=== PATIENT | female | born 1985 ===

== ENCOUNTER 2019-03-07 11:25 | Emergency (ER) | payer BC, OTHER ==
--- NOTE | 2019-03-07 11:38 | Event Note ---
ED Screening Note Date of service: 03/07/19 Time: 11:35 ED Screening Note: 33 y o female presents to ED cc of upper back right sided pain states pain worsened with inhalation, states was working out 3 weeks ago This initial assessment/diagnostic orders/clinical plan/treatment(s) is/are subject to change based on patients health status, clinical progression and re- assessment by fellow clinical providers in the ED. Further treatment and workup at subsequent clinical providers discretion. Patient/guardian urged not to elope from the ED as their condition may be serious if not clinically assessed and managed. Initial orders include: cxr
--- NOTE | 2019-03-07 12:43 | XRay Report ---
CHEST 1 View INDICATION / CLINICAL INFORMATION: Chest pain for one day. COMPARISON: None available. FINDINGS: No lateral view of the chest was obtained. SUPPORT DEVICES: None. HEART / MEDIASTINUM: No significant abnormality. LUNGS / PLEURA: No significant pulmonary or pleural abnormality. No pneumothorax. ADDITIONAL FINDINGS: No significant additional findings. IMPRESSION: No acute abnormality of the chest. Signer Name: Luke Mullen MD Signed: 03/07/2019 12:38 PM Workstation Name: [id number]
[2019-03-07 12:56] LABS: Basophils % (Auto) 0.5 % (0.0-1.8); Eosinophils # (Auto) 0.1 K/mm3 (0.0-0.4); Eosinophils % (Auto) 2.2 % (0.0-4.3); Hematocrit 39.9 % (30.3-42.9); Hemoglobin 12.7 gm/dl (10.1-14.3); Lymphocytes # (Auto) 2.7 K/mm3 (1.2-5.4); Lymphocytes % (Auto) 42.2 % (13.4-35.0); Mean Corpuscular HGB Conc 32 % (30-34); Mean Corpuscular Volume 73 fl (79-97); Monocytes # (Auto) 0.3 K/mm3 (0.0-0.8); Monocytes % (Auto) 5.1 % (0.0-7.3); Platelet Count 278 K/mm3 (140-440); Red Blood Count 5.48 M/mm3 (3.65-5.03); Red Cell Distribution Width 15.5 % (13.2-15.2)
[2019-03-07 13:01] LABS: BUN/Creatinine Ratio 11; Blood Urea Nitrogen 8 mg/dL (7-17); Hemolysis Index 259
[2019-03-07] MEDS ORDERED: ULTRAM PO ONE (14:25)
--- NOTE | 2019-03-07 16:07 | Emergency Department Report ---
<SAM WEISS - Last Filed: 03/07/19 16:05> ED General Adult HPI - General Chief complaint: Chest Pain Stated complaint: CHEST PAIN Time Seen by Provider: 03/07/19 11:34 Source: patient Mode of arrival: Ambulatory Limitations: No Limitations - History of Present Illness Initial comments: Patient complains of diffuse low specifically right-sided chest pain that started 2 days ago. Patient also complains of some shortness of breath and worsening of chest pain with inspiration. Patient denies any recent upper respiratory tract symptoms, travel, exogenous hormones -: Sudden Location: chest Severity scale (0 -10): 5 Quality: sharp Consistency: intermittent Improves with: none Worsens with: other (inspiration) Associated Symptoms: denies other symptoms Treatments Prior to Arrival: none - Related Data Allergies Allergy/AdvReac Type Severity Reaction Status Date / Time Penicillins Allergy Unknown Verified 03/07/19 11:27 ED Review of Systems Comment: All other systems reviewed and negative Constitutional: denies: chills, fever Eyes: denies: eye pain, eye discharge, vision change ENT: denies: ear pain, throat pain Respiratory: denies: cough, shortness of breath, wheezing Cardiovascular: chest pain. denies: palpitations Endocrine: no symptoms reported Gastrointestinal: denies: abdominal pain, nausea, diarrhea Genitourinary: denies: urgency, dysuria, discharge Musculoskeletal: denies: back pain, joint swelling, arthralgia Skin: denies: rash, lesions Neurological: denies: headache, weakness, paresthesias Psychiatric: denies: anxiety, depression Hematological/Lymphatic: denies: easy bleeding, easy bruising ED Past Medical Hx - Past Medical History Previous Medical History?: No Hx Congestive Heart Failure: No Hx of Cancer: No Hx Arthritis: No Hx Asthma: No - Surgical History Past Surgical History?: No Hx Appendectomy: No Hx Breast Surgery: No - Social History Smoking Status: Never Smoker Substance Use Type: None ED Physical Exam - General Limitations: No Limitations General appearance: alert, in no apparent distress - Head Head exam: Present: atraumatic, normocephalic - Eye Eye exam: Present: normal appearance, PERRL, EOMI - ENT ENT exam: Present: mucous membranes moist - Neck Neck exam: Present: normal inspection - Respiratory Respiratory exam: Present: normal lung sounds bilaterally. Absent: respiratory distress - Cardiovascular Cardiovascular Exam: Present: regular rate, normal rhythm. Absent: systolic murmur, diastolic murmur, rubs, gallop - GI/Abdominal GI/Abdominal exam: Present: soft, normal bowel sounds. Absent: distended, tenderness - Extremities Exam Extremities exam: Present: normal inspection - Back Exam Back exam: Present: normal inspection - Neurological Exam Neurological exam: Present: alert, oriented X3, CN II-XII intact. Absent: motor sensory deficit - Psychiatric Psychiatric exam: Present: normal affect, normal mood - Skin Skin exam: Present: warm, dry, intact, normal color. Absent: rash ED Medical Decision Making - Lab Data Result diagrams: 03/07/19 12:08 03/07/19 12:08 - Medical Decision Making CTA of the chest was ordered secondary to the patient's symptoms and elevated d- dimer ED Disposition Clinical Impression: Chest pain, Shortness of breath Disposition: DC-01 TO HOME OR SELFCARE Condition: Stable Instructions: Chest Pain (ED), Dyspnea (ED) Additional Instructions: Follow-up with a primary care/dipper and baker doctor in 2-3 days or if symptoms worsen and continue return to emergency room as soon as possible. Referrals: PRIMARY MD ELSA [Primary Care Provider] - 3-5 Days [facility] [Outside] - 3-5 Days [facility] [Outside] - 3-5 Days JAMEL ROSAS MD [Staff Physician] - 2-3 Days EMMA HOPE MD [Staff Physician] - 2-3 Days Forms: Work/School Release Form(ED) <SAKSHI GALLO - Last Filed: 03/07/19 20:47> ED Review of Systems ROS: Stated complaint: CHEST PAIN Other details as noted in HPI ED Course Vital Signs 03/07/19 03/07/19 11:32 14:31 Temperature 98 F Pulse Rate 78 Respiratory 20 18 Rate Blood Pressure 129/83 O2 Sat by Pulse 99 Oximetry - Reevaluation(s) Reevaluation #1: 03/07/19 20:45 Patient is speaking in full sentences with no signs of distress noted. ED Medical Decision Making - Lab Data Result diagrams: 03/07/19 12:08 03/07/19 12:08 - Medical Decision Making Patient was originally seen by Sam Diaz and was sent out to [place] for a pending CTA. As per Dr. Weiss patient to be discharged. CTA was within normal limits. Patient is stable. CTA obtained and dictated by radiologist unremarkable. JONEL and heart score is WNL. Chest xray dictated by the radiologist. PAtient is notified of the Xray report with no questions noted. Labs within normal limits. Negative troponin x2. Patient was instructed to Follow-up with a primary care/dipper and baker doctor in 2-3 days or if symptoms worsen and continue return to emergency room as soon as possible. At time of discharge, the patient does not seem toxic or ill in appearance. No acute signs of distress noted. Patient agrees to discharge treatment plan of care. No further questions noted by the patient. Critical care attestation.: If time is entered above; I have spent that time in minutes in the direct care of this critically ill patient, excluding procedure time. ED Disposition Is pt being admited?: No Does the pt Need Aspirin: No
--- NOTE | 2019-03-07 20:10 | Cat Scan Report ---
CT angio chest INDICATION / CLINICAL INFORMATION: chest pain elevated d dimer. TECHNIQUE: Precontrast bolus timing images were obtained followed by postcontrast axial and reformatted images. 3-plane MIP reconstructions were performed at an independent workstation by the technologist. All CT scans at this location are performed using CT dose reduction for ALARA by means of automated exposure control. COMPARISON: None available. FINDINGS: Pulmonary arterial enhancement is normal. No evidence of pulmonary embolus. Mild dependent atelectasis is seen in the right lower lung with a minimal right pleural effusion. No acute interstitial or airspace lung disease. No mediastinal adenopathy or pericardial effusion. No acute findings are seen in limited upper abdominal images and skeletal structures are negative. IMPRESSION: 1. No evidence of pulmonary embolus. 2. Minimal right pleural effusion. Signer Name: Anderson Amaya MD Signed: 03/07/2019 8:06 PM Workstation Name: [id number]
[2019-03-07 21:16] VITALS: BP 132/80
== END 2019-03-07 21:16 | disposition home or self-care (01) ==
LOC: ED 11:25
DX: R07.89 Other chest pain (principal); R06.02 Shortness of breath
CPT/HCPCS: 36415; 71046; 71275; 80048; 84484; 84702; 85025; 85379; 93005; 93010; 99284; Q9967